=== PATIENT | male | born 1940 | race Caucasian/White ===

== ENCOUNTER 2017-12-29 16:26 | Inpatient (IN) | payer OTHER ==
[~2017-12-29] VITALS: Ht 182.9 cm; Wt 82.1 kg
[~2017-12-29 16:26] MED LIST: ASPI81TA50 PO; DONE10TA61 PO; FINA5TAB4 PO; GLIM2TAB2 PO; MEMA10TA PO; METF10003 PO; PRAV40TA2 PO; RANO500T2 PO; TAMS0.4C2 PO
[2017-12-29] MEDS ORDERED: IV NORMAL SALINE 1,000ML 1,000 ML IV ONE (17:00)
--- NOTE | 2017-12-29 17:05 | RAD ---
Indication: Shortness of breath TECHNIQUE: Portable AP upright chest x-ray COMPARISON: Previous study from 01/17/2016 FINDINGS: Heart is normal in size. Lungs are clear. No pneumothorax or pleural effusion. Visualized bony thorax within normal limits. IMPRESSION: No acute cardiopulmonary process. Electronically signed by: Олег Bryan DO (12/29/2017 5:01 PM) [facility]
--- NOTE | 2017-12-29 17:20 | ED.ADGEN ---
Past History Past Medical History: Anxiety, Diabetes, Other Past Surgical History: Other Alcohol Use: Occasionally Drug Use: None Adult General Chief Complaint Chief Complaint Dizziness HPI HPI Patient is a 77-year-old male with history of dementia presents with increased fatigue staying in bed for the past 2 days when dizzy episode with hypotension and near-syncope just prior to ED arrival. Patient spouse reports patient has had decreased appetite, decreased fluid intake but has been compliant with medications. He has not wanted to get out of bed for the past 2 days. This afternoon while walking, the patient and 12 over was helped to a chair. Home blood pressure is noted to be 80/60. Patient is confused at disoriented at baseline. Denies headache, chest pain palpitations shortness of breath. Fever chills, vomiting, diarrhea. History is limited by memory impairment. History obtained from the patient's spouse who is at bedside. Review of Systems Review of Systems ROS limited due to dementia All other systems were reviewed and found to be within normal limits, except as documented in this note. Current Medications Current Medications Current Medications Medications (Trade) Dose Ordered Sig/Sue Start Time Stop Time Status Last Admin Dose Admin Sodium Chloride 1,000 ml @ 1,000 mls/hr 1X ONCE 12/29/17 17:00 12/29/17 17:59 DC 12/29/17 17:30 1,000 MLS/HR Allergies Allergies Allergies Coded Allergies Type Severity Reaction Last Updated Verified No Known Drug Allergies 03/21/15 No Physical Exam Physical Exam Constitutional: Well developed, well nourished, smiling, pleasant, bilateral external ears normal, oropharynx, dry, nose normal. [] Eyes: PERRLA, EOMI, conjunctiva normal. [] Neck: Normal range of motion. [] Cardiovascular:Heart rate regular rhythm, no murmur [] Lungs & Thorax: Bilateral breath sounds clear to auscultation [] Abdomen: Bowel sounds normal, soft, no tenderness. [] Skin: Warm, dry, no erythema, no rash. [] Back: No midline tenderness. [] Extremities: No tenderness, no edema. [] Neurologic: Alert and oriented,, normal motor function, normal sensory function , no focal deficits noted. [] Psychologic: Affect normal, judgement normal, mood normal. [] Current Patient Data Vital Signs Vital Signs Date Time Temp Pulse Resp B/P (MAP) Pulse Ox O2 Delivery O2 Flow Rate FiO2 12/29/17 16:39 98.2 78 22 95 Room Air Lab Results Laboratory Tests Test 12/29/17 17:30 White Blood Count 5.0 x10^3/uL (4.0-11.0) Red Blood Count 4.86 x10^6/uL (4.30-5.70) Hemoglobin 15.7 g/dL (13.0-17.5) Hematocrit 45.4 % (39.0-53.0) Mean Corpuscular Volume 93 fL (79-100) Mean Corpuscular Hemoglobin 32 pg (25-35) Mean Corpuscular Hemoglobin Concent 35 g/dL (31-37) Red Cell Distribution Width 12.8 % (11.5-14.5) Platelet Count 278 x10^3/uL (140-400) Neutrophils (%) (Auto) 70 % (31-73) Lymphocytes (%) (Auto) 18 % (24-48) L Monocytes (%) (Auto) 8 % (0-9) Eosinophils (%) (Auto) 4 % (0-3) H Basophils (%) (Auto) 1 % (0-3) Neutrophils # (Auto) 3.5 x10^3uL (1.8-7.7) Lymphocytes # (Auto) 0.9 x10^3/uL (1.0-4.8) L Monocytes # (Auto) 0.4 x10^3/uL (0.0-1.1) Eosinophils # (Auto) 0.2 x10^3/uL (0.0-0.7) Basophils # (Auto) 0.0 x10^3/uL (0.0-0.2) EKG EKG [EKG: EKG: Sinus rhythm, rate 59, no acute ST-T wave changes, QTC 396.] Radiology/Procedures Radiology/Procedures [Chest x-ray: No acute cardiopulmonary disease per radiology report.] Course & Med Decision Making Course & Med Decision Making Pertinent Labs and Imaging studies reviewed. (See chart for details) [Asymptomatic on exam, stable vital signs. Lab work and imaging studies reviewed and pending. Care endorsed to [facility] at 1800 disposition pending. ] Final Impression Final Impression [] Dragon Disclaimer Dragon Disclaimer This electronic medical record was generated, in whole or in part, using a voice recognition dictation system. BRIDGETT HINOJOSA DO Dec 29, 2017 17:20
--- NOTE | 2017-12-29 17:46 | EKG ---
[address] [address] Test Date: 2017-12-29 Test Time: 16:47:37 Pat Name: JUNIOR RUSSELL Department: Room: Gender: M Record Librarian: JOANNA : 1940 Requested By: BRIDGETT HINOJOSA Order Number: [id number] Reading MD: Measurements Intervals Robbins Rate: 59 P: 45 OR: 194 QRS: -12 QRSD: 98 T: 73 QT: 396 QTc: 396 Interpretive Statements SINUS RHYTHM LEFTWARD AXIS QRS(T) CONTOUR ABNORMALITY CONSIDER ANTEROLATERAL MYOCARDIAL DAMAGE POSSIBLY ABNORMAL ECG RI6.01 No previous ECG available for comparison
[2017-12-29 17:56] LABS: BASO % 1 % (0-3); EOS # 0.2 x10^3/uL (0.0-0.7); EOS % 4 % (0-3); HEMATOCRIT 45.4 % (39.0-53.0); HEMOGLOBIN 15.7 g/dL (13.0-17.5); LYMPH # 0.9 x10^3/uL (1.0-4.8); LYMPH % 18 % (24-48); MEAN CORPUSCULAR HEMOGLOBIN 32 pg (25-35); MEAN CORPUSCULAR HGB CONC 35 g/dL (31-37); MEAN CORPUSCULAR VOLUME 93 fL (79-100); MONO # 0.4 x10^3/uL (0.0-1.1); MONO % 8 % (0-9); NEUT # 3.5 x10^3uL (1.8-7.7); NEUT % 70 % (31-73); PLATELET COUNT 278 x10^3/uL (140-400); RED BLOOD COUNT 4.86 x10^6/uL (4.30-5.70); RED CELL DISTRIBUTION WIDTH 12.8 % (11.5-14.5)
--- NOTE | 2017-12-29 18:12 | RAD ---
CT HEAD WO CONTRAST History: Dizziness, altered mental status Comparison: 01/05/2016 Technique: Noncontrast CT imaging was performed of the head. Exposure: One or more of the following individualized dose reduction techniques were utilized for this examination: 1. Automated exposure control 2. Adjustment of the mA and/or kV according to patient size 3. Use of iterative reconstruction technique. Findings: No acute extra-axial or parenchymal hemorrhage is identified. There is no significant intra-axial mass effect, midline shift, or extra-axial fluid collection. The la-white differentiation of the major vascular territories is preserved. There is again some mild ill-defined low-density of the supratentorial white matter such as of the parietal lobes. The ventricles, sulci, and cisterns are within normal limits in size and configuration. The mastoid air cells and the visualized paranasal sinuses are mostly aerated, very mild ethmoid air cell mucosal thickening. No acute calvarial abnormality is identified. There is incomplete unification of posterior arch of C1 as seen previously. Impression: 1. No acute intracranial abnormality is identified. Mild ill-defined low-density of the supratentorial parenchyma is nonspecific, may be due to chronic microvascular ischemic disease. Electronically signed by: Mehul Pritchard MD (12/29/2017 6:08 PM) [facility]
[2017-12-29 18:15] LABS: ALBUMIN 3.7 g/dL (3.4-5.0); ALBUMIN/GLOBULIN RATIO 1.1 (1.0-1.7); CALCIUM 8.9 mg/dL (8.5-10.1); CREATININE 1.2 mg/dL (0.7-1.3); GFR 58.6; POTASSIUM 4.4 mmol/L (3.5-5.1); TOTAL BILIRUBIN 0.5 mg/dL (0.2-1.0)
--- NOTE | 2017-12-29 22:00 | NUR ---
Admission Note: This patient is a 77-year-old male with history of dementia presents with increased fatigue staying in bed for the past 2 days when dizzy episodes with hypotension and near-syncope just prior to coming into the hospital today. Hat time of admission to ICU6 pt was O/A x 4 and is pleasant and cooperative with staff and cares. Pt denies SOB or chest pain. Will have a cardiology consult and a repeat trop. Will place in as a fall precaution and continue to monitor.
[2017-12-29 22:08] VITALS: BP 123/65
[2017-12-29 23:15] VITALS: BP 113/55
[2017-12-30] VITALS (7 sets, daily range): BP systolic 96–132; BP diastolic 54–63
[2017-12-30 06:39] LABS: BASO % 0 % (0-3); EOS # 0.3 x10^3/uL (0.0-0.7); EOS % 4 % (0-3); HEMATOCRIT 40.6 % (39.0-53.0); HEMOGLOBIN 14.1 g/dL (13.0-17.5); LYMPH # 1.3 x10^3/uL (1.0-4.8); LYMPH % 19 % (24-48); MEAN CORPUSCULAR HEMOGLOBIN 32 pg (25-35); MEAN CORPUSCULAR HGB CONC 35 g/dL (31-37); MEAN CORPUSCULAR VOLUME 92 fL (79-100); MONO # 0.6 x10^3/uL (0.0-1.1); MONO % 9 % (0-9); NEUT # 4.4 x10^3uL (1.8-7.7); NEUT % 68 % (31-73); PLATELET COUNT 260 x10^3/uL (140-400); RED CELL DISTRIBUTION WIDTH 12.8 % (11.5-14.5); WHITE BLOOD COUNT 6.5 x10^3/uL (4.0-11.0)
[2017-12-30 06:52] LABS: CALCIUM 8.1 mg/dL (8.5-10.1); GFR 72.3; POTASSIUM 3.5 mmol/L (3.5-5.1)
[2017-12-30] MEDS: ASPIRIN 81 MG TAB.CHEW PO SCH (08:15)
[2017-12-30] MEDS ORDERED: CITALOPRAM 20 MG TABLET. PO SCH (10:00)
[2017-12-30] MEDS ORDERED: TAMS0.4C2 PO (10:00)
[2017-12-30] MEDS ORDERED: MULT1TAB52 PO (10:00)
[2017-12-30] MEDS ORDERED: LEXAPRO20 MG PO (10:00)
[2017-12-30] MEDS ORDERED: TAMSULOSIN 0.4 MG CAP.ER.24H. PO SCH (10:00)
--- NOTE | 2017-12-30 10:04 | NUR ---
Patient stood to use urinal and experienced "a moment of weakness and dizziness". Will report to physician.
[2017-12-30] MEDS: MULTIVITAMIN with MINERAL TABLET. PO SCH (10:32)
--- NOTE | 2017-12-30 11:10 | NUR ---
Received home medication list from patients daughter via phone. Addendum: 12/30/17 at 1424 by CARLEY LEUNG RN called Dr. Lucero office and received H&P and official medication list via fax. Medications entered into medical record.
--- NOTE | 2017-12-30 11:13 | PDOC2 ---
CONSULT Date of Admission DATE: 12/30/17 TIME: 11:13 Reason for Consult: syncope Problem List Problems Medical Problems: (1) Dizziness Status: Acute (2) Near syncope Status: Acute History of Present Illness Patient is a 77-year-old male with history of dementia who presented with increased fatigue staying in bed for the past 2 days, dizzy episode with hypotension and near-syncope just prior to ED arrival. Patients spouse reported patient has had decreased appetite, decreased fluid intake but has been compliant with medications. He apparently had not wanted to get out of bed for 2 days. Yesterday afternoon he apparently had a syncopal episode. Home blood pressure was noted to be 80/60. Patient is confused at disoriented at baseline. He is a very poor historian. History if obtained from the hospital chart, nursing staff and his PCP records in [facility]. [facility]. He currently denies any complaints. He is orthostatic this am with standing systolic pressure of 81 mmHg but without complaints of dizziness. He denies chest pain palpitations shortness of breath. Past Medical History diabetes mellitus II, hyperlipidemia, hypogonadism, prostate concer, depression , DJD, melanoma, hypertension, BPH, bradycardia, PHTN, CAD, ED, Dementia Echo 05/23/16 LVEF 60-65% grade 1 diastolic dysfunction aortic root 3.8 cm proximal ascending aorta 3.7cm mild TR, PAS 28 mmHg Holter monitor 2014 Sinus rhythm with average rate of 60 bpm. PACs, PVCs, 12 short PAT runs. MPI 2013 normal perfusion Past Surgical History Melanoma excision, Cyst removal L arm, rotator cuff repair, prostate biopsy, inguinal hernia repair Family History breast cancer, stroke, coronary artery disease, Alzheimer's disease. Social History non smoker, no excessive ETOH, no illicit drugs Current Medications Current Medications Sodium Chloride 1,000 ml @ 1,000 mls/hr 1X ONCE IV Last administered on at 17:30; Start 12/29/17 at 17:00; Stop 12/29/17 at 17:59; Status DC Aspirin (Children'S Aspirin) 81 mg DAILY PO Last administered on 12/30/17at 08: 15; Start 12/30/17 at 09:00 Tamsulosin HCl (Flomax) 0.4 mg DAILY PO Last administered on 12/30/17at 10:33; Start 12/30/17 at 10:00 Citalopram Hydrobromide (CeleXA) 40 mg DAILY PO Last administered on 12/30/17at 10:32; Start 12/30/17 at 10:00 Multivitamins/ Calcium (Thera-M Plus) 1 tab DAILY PO Last administered on at 10:32; Start 12/30/17 at 10:00 Active Scripts Active Reported Lexapro (Escitalopram Oxalate) 20 Mg Tablet 20 Mg PO DAILY Multivitamins (Multivitamin) 1 Each Tablet 1 Each PO DAILY Tamsulosin Hcl 0.4 Mg Cap.er.24h 0.4 Mg PO DAILY Pravastatin Sodium 40 Mg Tablet 1 Tab PO DAILY Metformin Hcl 1,000 Mg Tablet 500 Mg PO BIDWMEALS Tamsulosin Hcl 0.4 Mg Cap.er.24h 0.4 Mg PO Aspir-Low (Aspirin) 81 Mg Tablet.dr 81 Mg PO Allergies: Coded Allergies: No Known Drug Allergies (Unverified , 03/21/15) Review of System limited due to patient mental status. General: Alert, Cooperative, No acute distress HEENT: Atraumatic, Mucous membr. moist/pink Lungs: Clear to auscultation, Normal air movement Heart: Regular rate, Normal S1, Normal S2, Other (no gallops, clicks or rubs) Abdomen: Normal bowel sounds, Soft, No tenderness Extremities: No cyanosis, No edema Neuro: Normal speech Psych/Mental Status: Mood NL VITALS Vital Signs Date Time Temp Pulse Resp B/P (MAP) Pulse Ox O2 Delivery O2 Flow Rate FiO2 12/30/17 06:10 98.7 54 18 112/54 (73) 93 Room Air Labs Laboratory Tests Test 12/29/17 17:30 12/29/17 23:30 12/30/17 05:54 White Blood Count 5.0 x10^3/uL (4.0-11.0) 6.5 x10^3/uL (4.0-11.0) Red Blood Count 4.86 x10^6/uL (4.30-5.70) 4.40 x10^6/uL (4.30-5.70) Hemoglobin 15.7 g/dL (13.0-17.5) 14.1 g/dL (13.0-17.5) Hematocrit 45.4 % (39.0-53.0) 40.6 % (39.0-53.0) Mean Corpuscular Volume 93 fL (79-100) 92 fL (79-100) Mean Corpuscular Hemoglobin 32 pg (25-35) 32 pg (25-35) Mean Corpuscular Hemoglobin Concent 35 g/dL (31-37) 35 g/dL (31-37) Red Cell Distribution Width 12.8 % (11.5-14.5) 12.8 % (11.5-14.5) Platelet Count 278 x10^3/uL (140-400) 260 x10^3/uL (140-400) Neutrophils (%) (Auto) 70 % (31-73) 68 % (31-73) Lymphocytes (%) (Auto) 18 % (24-48) 19 % (24-48) Monocytes (%) (Auto) 8 % (0-9) 9 % (0-9) Eosinophils (%) (Auto) 4 % (0-3) 4 % (0-3) Basophils (%) (Auto) 1 % (0-3) 0 % (0-3) Neutrophils # (Auto) 3.5 x10^3uL (1.8-7.7) 4.4 x10^3uL (1.8-7.7) Lymphocytes # (Auto) 0.9 x10^3/uL (1.0-4.8) 1.3 x10^3/uL (1.0-4.8) Monocytes # (Auto) 0.4 x10^3/uL (0.0-1.1) 0.6 x10^3/uL (0.0-1.1) Eosinophils # (Auto) 0.2 x10^3/uL (0.0-0.7) 0.3 x10^3/uL (0.0-0.7) Basophils # (Auto) 0.0 x10^3/uL (0.0-0.2) 0.0 x10^3/uL (0.0-0.2) Sodium Level 141 mmol/L (136-145) 142 mmol/L (136-145) Potassium Level 4.4 mmol/L (3.5-5.1) 3.5 mmol/L (3.5-5.1) Chloride Level 104 mmol/L (98-107) 107 mmol/L (98-107) Carbon Dioxide Level 28 mmol/L (21-32) 26 mmol/L (21-32) Anion Gap 9 (6-14) 9 (6-14) Blood Urea Nitrogen 15 mg/dL (8-26) 14 mg/dL (8-26) Creatinine 1.2 mg/dL (0.7-1.3) 1.0 mg/dL (0.7-1.3) Estimated GFR (Cockcroft-Gault) 58.6 72.3 BUN/Creatinine Ratio 13 (6-20) Glucose Level 186 mg/dL (70-99) 113 mg/dL (70-99) Calcium Level 8.9 mg/dL (8.5-10.1) 8.1 mg/dL (8.5-10.1) Total Bilirubin 0.5 mg/dL (0.2-1.0) Aspartate Amino Transf (AST/SGOT) 16 U/L (15-37) Alanine Aminotransferase (ALT/SGPT) 20 U/L (16-63) Alkaline Phosphatase 104 U/L (46-116) Troponin I Quantitative < 0.017 ng/mL (0-0.055) < 0.017 ng/mL (0-0.055) OC-Acr-B-Type Natriuretic Peptide 128 pg/mL (0-449) Total Protein 7.0 g/dL (6.4-8.2) Albumin 3.7 g/dL (3.4-5.0) Albumin/Globulin Ratio 1.1 (1.0-1.7) Assessment/Plan 1. syncope - likely secondary to orthostatic hypotension . Add midodrine, check echo, YULIA hose. 2. Bradycardia - SB 50s for low with occasional PVCs. Await echo. Continue to monitor. Avoid AV jalen blockers. Bradycardia is apparently not new for him and has been stable for some time. Consider repeat outpatient monitor. 3. hypertension - controlled off antihypertensives. Continued to be orthostatic. 4. hyperlipidemia - check lipids Follow up with primary tetryl blender operator ([facility]) after discharge. SILVIA URBINA APRN Dec 30, 2017 11:13
[2017-12-30] MEDS ORDERED: IV NORMAL SALINE 1,000ML 1,000 ML IV ONE (12:00)
--- NOTE | 2017-12-30 12:09 | HP ---
ADMIT DATE: 12/30/2017 HISTORY OF PRESENT ILLNESS: The patient is a 77-year-old male patient, who apparently was brought to the Emergency Room with increased fatigue, staying in bed for the last 2 days. With these episodes with hypertension, near syncope just prior to the Emergency Room arrival, his reported that the patient has decreased appetite, decreased fluid intake, has been compliant with his medication. He does not want to get up out of the bed for the last 2 days. In the afternoon while walking the patient help with a chair and home blood pressure measurement was 80/60. He was confused, disoriented at baseline. He was evaluated in the Emergency Room, was admitted with dizziness, near syncope. He has also had bradycardia. PAST MEDICAL HISTORY: Significant for type 2 diabetes, hypertension, hyperlipidemia and depression. PAST SURGICAL HISTORY: Unobtainable. ALLERGIES: He has no known drug allergies. MEDICATIONS: He is currently on Flomax 0.4 mg daily, pravastatin sodium 40 mg at bedtime, aspirin 81 mg once a day, escitalopram oxalate 20 mg daily, metformin 500 mg twice a day with meals and multivitamin 1 tablet once a day. FAMILY HISTORY: Unobtainable. SOCIAL HISTORY: He is , lives with his . He apparently does not smoke, drink alcohol or use any recreational drugs. REVIEW OF SYSTEMS: Also unobtainable as the patient is demented. PHYSICAL EXAMINATION: GENERAL: On arrival to the Emergency Room, he apparently was pale, but not jaundiced, cyanosis, thyromegaly. No jugular venous distension. No lower limb edema. VITAL SIGNS: His heart rate was 78, blood pressure was 119/74, temperature was 98.2, respiratory rate was 22 and oxygen saturation was 95% on room air. HEAD, EYES, EARS, NOSE AND THROAT: Showed normocephalic, atraumatic. NECK: Supple. HEART: Showed normal first and second heart sounds with no gallop, rub or murmur. CHEST: Clear to auscultation. No crepitation or rhonchi. ABDOMEN: Distended, soft, nontender. No guarding or rigidity. No organomegaly. All hernial orifice intact. Bowel sounds normal. NEUROLOGIC: He was awake, alert, but very confused, disoriented in time, place and person; however, all cranial nerves intact. EXTREMITIES: He moves extremities without difficulty. LABORATORY DATA: While in the Emergency Room, his lab work done, which showed a white cell count 5000, hemoglobin 15.7, hematocrit 45, MCV 93, and platelet count of 278,000 with normal manual differential. His chemistry showed a serum sodium 141, potassium 4.4, chloride 104, bicarbonate 28, anion gap of 9, BUN 15, creatinine 1.2, estimated GFR was 68 mL per minute, his glucose 186, calcium was 8.9. Total bilirubin, AST, ALT, alkaline phosphatase were normal. His first set of cardiac enzyme showed the troponin to be less than 0.017. Beta natriuretic peptide was 128. Total protein 7, albumin was 3.7. He has had chest x-ray showed the heart size is normal. Lungs are clear, no pneumothorax, pleural effusion, visualized bony thorax are within normal limits. His CT scan of the head showed that no acute intracranial abnormality identified. Mild ill-defined low density of the supratentorial, parenchyma is nonspecific, may be due to chronic microvascular ischemic disease. ASSESSMENT AND PLAN: The patient was admitted with dizziness, near syncope, fatigue, and type 2 diabetes. We will do the 2 more sets of cardiac enzyme, consult the Cardiology team and decide on further management accordingly. SKY SOTO MD DR: DALE/indio JOB#: [id number] / [id number]
[2017-12-30] MEDS: MIDODRINE 5 MG TABLET PO SCH ×2 (12:10→18:02)
[2017-12-30] MEDS ORDERED: METF10003 PO (13:05)
[2017-12-30] MEDS ORDERED: ESCITALOPRAM OX10 MG PO (13:05)
[2017-12-30] MEDS ORDERED: MEMA1CAP3 PO (13:05)
[2017-12-30] MEDS ORDERED: CHOL10003 PO (13:05)
[2017-12-30] MEDS ORDERED: PRAV80TA2 PO (13:05)
[2017-12-30] MEDS: DONEPEZIL HCL 10 MG TABLET PO SCH (14:09)
[2017-12-30] MEDS: MEMANTINE 10 MG TABLET. PO SCH ×2 (14:09→20:24)
[2017-12-30] MEDS: CHOLECALCIFEROL (VITAMIN D3) 1,000 UNIT TABLET PO SCH (14:09)
[2017-12-30] MEDS ORDERED: SULF15DR5 OP (16:39)
[2017-12-30] MEDS: metFORMIN 500 MG TABLET PO SCH (18:02)
[2017-12-30] MEDS: SULFACETAMIDE 10% OPHTH SOLUTION 15ML BOTTLE. OS SCH (20:11)
[2017-12-30] MEDS: PRAVASTATIN 20 MG TABLET. PO SCH (20:24)
[2017-12-30] MEDS: TAMSULOSIN 0.4 MG CAP.ER.24H. PO SCH (20:24)
--- NOTE | 2017-12-31 00:07 | PN ---
DATE: 12/30/2017 SUBJECTIVE: The patient is resting flat comfortably in bed, no apparent distress. On questioning him, he denied any complaint. The patient was extremely confused, disoriented. Nursing staff did not voice any concern except that he continued to demonstrate marked postural hypotension. PHYSICAL EXAMINATION: VITAL SIGNS: In fact, his blood pressure lying was 113/56 with the heart rate of 62, sitting was 96/54 with the heart rate of 62, and standing was 81/47 with the heart rate that actually rate was 77. Rest of the clinical exam is stable, has not really changed. LABORATORY DATA: Lab work this morning showed a serum sodium 142, potassium 3.5, chloride 107, bicarbonate 26, anion gap of 9, BUN 14, creatinine 1, estimated GFR was 72 mL per minute. His glucose was 113, calcium was 8.1. His white cell count was 6500, hemoglobin 14, hematocrit 40, MCV 92, and platelet count of 260,000 with normal manual differential. ASSESSMENT: 1. Dizziness, syncope with my differential diagnoses include volume depletion, effect of the Flomax as he takes it during daytime, and autonomic neuropathy as he is diabetic. 2. Type 2 diabetes, for which he is on metformin. 3. Hyperlipidemia. 4. Benign prostatic hypertrophy. PLAN: My plan is to start him on IV fluid with a bolus of normal saline at 500 mL over an hour and continue at 100 mL per hour. He was seen by the slope hoist operator and he was started also on midodrine We will follow his labs closely and decide on further management accordingly. SKY SOTO MD DR: DALE/indio JOB#: [id number] / [id number]
[2017-12-31 03:40] VITALS: BP 131/65
[2017-12-31 05:45] VITALS: BP 117/62
[2017-12-31] MEDS: MIDODRINE 5 MG TABLET PO SCH ×3 (06:40→17:48)
[2017-12-31 06:56] LABS: CALCIUM 8.3 mg/dL (8.5-10.1); GFR 72.3; POTASSIUM 3.6 mmol/L (3.5-5.1)
[2017-12-31] MEDS: CHOLECALCIFEROL (VITAMIN D3) 1,000 UNIT TABLET PO SCH (08:27)
[2017-12-31] MEDS: metFORMIN 500 MG TABLET PO SCH ×2 (08:28→17:02)
[2017-12-31] MEDS: DONEPEZIL HCL 10 MG TABLET PO SCH (08:28)
[2017-12-31] MEDS: ASPIRIN 81 MG TAB.CHEW PO SCH (08:28)
[2017-12-31] MEDS: MULTIVITAMIN with MINERAL TABLET. PO SCH (08:28)
[2017-12-31] MEDS: MEMANTINE 10 MG TABLET. PO SCH ×2 (08:28→20:51)
[2017-12-31] MEDS: SULFACETAMIDE 10% OPHTH SOLUTION 15ML BOTTLE. OS SCH ×3 (08:28→20:52)
[2017-12-31] MEDS: CITALOPRAM 20 MG TABLET. PO SCH (08:28)
--- NOTE | 2017-12-31 08:37 | CARD ---
MR#: [id number] Date of Study: 12/30/2017 Ordering Physician: SILVIA URBINA, Referring Physician: SKY SOTO, Tech: LIZZIE Orellana APPROVED REPORT EXAM: Two-dimensional and M-mode echocardiogram with Doppler and color Doppler. Other Information Quality : Average INDICATION Syncope 2D DIMENSIONS Left Atrium(2D)3.7 (1.6-4.0cm)IVSd1.0 (0.7-1.1cm) Aortic Root(2D)2.9 (2.0-3.7cm)LVDd5.4 (3.9-5.9cm) LVOT Diameter2.4 (1.8-2.4cm)PWd0.9 (0.7-1.1cm) LVDs3.6 (2.5-4.0cm)FS (%) 33.2 % SV87.6 mlLVEF(%)61.3 (>50%) Aortic Valve AoV Peak Anthony.144.8cm/Marin Peak GR.8.4mmHg LVOT Peak Anthony.77.5cm/sAVA (VMAX)2.48cm2 Mitral Valve MV E Qfljihew22.3cm/sMV DECEL [id number] MV A Lwcpspfa33.0cm/sE/A Ratio1.1 Tricuspid Valve TR P. [id number]/sRAP [id number] TR Peak Gr.21urPsTAIK21cmIy LEFT VENTRICLE The left ventricle is normal size. There is normal left ventricular wall thickness. The left ventricu lar systolic function is normal. The Ejection Fraction is 60-65%. There is normal LV segmental wall m otion. RIGHT VENTRICLE The right ventricle is normal size. There is normal right ventricular wall thickness. The right ventr icular systolic function is normal. ATRIA The left atrium size is normal. The right atrium size is normal. The interatrial septum is intact wit h no evidence for an atrial septal defect or patent foramen ovale as noted on 2-D or Doppler imaging. AORTIC VALVE The aortic valve is trileaflet. The aortic valve is mildly calcified. Doppler and Color Flow revealed trace aortic regurgitation. There is no significant aortic valvular stenosis. MITRAL VALVE The mitral valve is normal in structure and function. There is no mitral valve stenosis. Doppler and Color-flow revealed trace mitral regurgitation. TRICUSPID VALVE Doppler and Color Flow revealed trace to mild tricuspid regurgitation. There is no tricuspid valve st enosis. PULMONIC VALVE The pulmonic valve is not well visualized. Doppler and Color Flow revealed no pulmonic valvular regur gitation. There is no pulmonic valvular stenosis. GREAT VESSELS The aortic root is normal in size. The IVC is normal in size and collapses >50% with inspiration. PERICARDIAL EFFUSION There is no pleural effusion. There is no evidence of significant pericardial effusion. Critical Notification Critical Value: No <Conclusion> The left ventricular systolic function is normal. The Ejection Fraction is 60-65%. There is normal LV segmental wall motion. Trace mitral regurgitation. Trace to mild tricuspid regurgitation. There is no evidence of significant pericardial effusion. There is no evidence of significant pericardial effusion. Signed by : Chiki Sepulveda, Electronically Approved : 12/31/2017 08:36:20
--- NOTE | 2017-12-31 10:30 | PDOC ---
PROGRESS NOTES Diagnosis Problem Problems Medical Problems: (1) Dizziness Status: Acute (2) Near syncope Status: Acute Assessment Problems Medical Problems: (1) Dizziness Status: Acute (2) Near syncope Status: Acute 1. syncope - likely secondary to orthostatic hypotension . orthostatic pressures improving on midodrine. Repeat orthostatic checks today. 2. Bradycardia - SB 50s for low with occasional PVCs. Heart rates appear stable. Continue to monitor. Consider repeat outpatient monitor. 3. hypertension - controlled off antihypertensives. Normal LVEF and wall motion by echo. 4. hyperlipidemia - lipids pending Follow up with primary powdered metal supervisor after discharge. Subjective no chest pain, dyspnea or recurrent syncope Objective Vital Signs Date Time Temp Pulse Resp B/P (MAP) Pulse Ox O2 Delivery O2 Flow Rate FiO2 12/31/17 06:40 58 117/62 12/31/17 05:45 98.1 18 96 Room Air Intake and Output 12/31/17 07:00 Intake Total 2619 ml Output Total 1150 ml Balance 1469 ml Intake Oral 1620 ml IV Total 999 ml Output Urine Total 1150 ml # Voids 5 Abdomen: Normal bowel sounds, Soft Heart: Regular rate, Normal S1, Normal S2 Extremities: No cyanosis, Normal pulses General: Alert, Oriented X3, Cooperative Lungs: Clear to auscultation Neuro: Normal speech Psych/Mental Status: Mental status NL, Mood NL Review of Relevant I have reviewed the following items jeanna (where applicable) has been applied. Labs Laboratory Tests Test 12/29/17 17:30 12/29/17 23:23 12/29/17 23:30 12/30/17 05:54 White Blood Count 5.0 x10^3/uL (4.0-11.0) 6.5 x10^3/uL (4.0-11.0) Red Blood Count 4.86 x10^6/uL (4.30-5.70) 4.40 x10^6/uL (4.30-5.70) Hemoglobin 15.7 g/dL (13.0-17.5) 14.1 g/dL (13.0-17.5) Hematocrit 45.4 % (39.0-53.0) 40.6 % (39.0-53.0) Mean Corpuscular Volume 93 fL (79-100) 92 fL (79-100) Mean Corpuscular Hemoglobin 32 pg (25-35) 32 pg (25-35) Mean Corpuscular Hemoglobin Concent 35 g/dL (31-37) 35 g/dL (31-37) Red Cell Distribution Width 12.8 % (11.5-14.5) 12.8 % (11.5-14.5) Platelet Count 278 x10^3/uL (140-400) 260 x10^3/uL (140-400) Neutrophils (%) (Auto) 70 % (31-73) 68 % (31-73) Lymphocytes (%) (Auto) 18 % (24-48) 19 % (24-48) Monocytes (%) (Auto) 8 % (0-9) 9 % (0-9) Eosinophils (%) (Auto) 4 % (0-3) 4 % (0-3) Basophils (%) (Auto) 1 % (0-3) 0 % (0-3) Neutrophils # (Auto) 3.5 x10^3uL (1.8-7.7) 4.4 x10^3uL (1.8-7.7) Lymphocytes # (Auto) 0.9 x10^3/uL (1.0-4.8) 1.3 x10^3/uL (1.0-4.8) Monocytes # (Auto) 0.4 x10^3/uL (0.0-1.1) 0.6 x10^3/uL (0.0-1.1) Eosinophils # (Auto) 0.2 x10^3/uL (0.0-0.7) 0.3 x10^3/uL (0.0-0.7) Basophils # (Auto) 0.0 x10^3/uL (0.0-0.2) 0.0 x10^3/uL (0.0-0.2) Sodium Level 141 mmol/L (136-145) 142 mmol/L (136-145) Potassium Level 4.4 mmol/L (3.5-5.1) 3.5 mmol/L (3.5-5.1) Chloride Level 104 mmol/L (98-107) 107 mmol/L (98-107) Carbon Dioxide Level 28 mmol/L (21-32) 26 mmol/L (21-32) Anion Gap 9 (6-14) 9 (6-14) Blood Urea Nitrogen 15 mg/dL (8-26) 14 mg/dL (8-26) Creatinine 1.2 mg/dL (0.7-1.3) 1.0 mg/dL (0.7-1.3) Estimated GFR (Cockcroft-Gault) 58.6 72.3 BUN/Creatinine Ratio 13 (6-20) Glucose Level 186 mg/dL (70-99) 113 mg/dL (70-99) Calcium Level 8.9 mg/dL (8.5-10.1) 8.1 mg/dL (8.5-10.1) Total Bilirubin 0.5 mg/dL (0.2-1.0) Aspartate Amino Transf (AST/SGOT) 16 U/L (15-37) Alanine Aminotransferase (ALT/SGPT) 20 U/L (16-63) Alkaline Phosphatase 104 U/L (46-116) Troponin I Quantitative < 0.017 ng/mL (0-0.055) < 0.017 ng/mL (0-0.055) RN-Enr-X-Type Natriuretic Peptide 128 pg/mL (0-449) Total Protein 7.0 g/dL (6.4-8.2) Albumin 3.7 g/dL (3.4-5.0) Albumin/Globulin Ratio 1.1 (1.0-1.7) Nasal Screen MRSA (PCR) Positive (Negative) Test 12/31/17 05:53 Sodium Level 144 mmol/L (136-145) Potassium Level 3.6 mmol/L (3.5-5.1) Chloride Level 109 mmol/L (98-107) Carbon Dioxide Level 26 mmol/L (21-32) Anion Gap 9 (6-14) Blood Urea Nitrogen 9 mg/dL (8-26) Creatinine 1.0 mg/dL (0.7-1.3) Estimated GFR (Cockcroft-Gault) 72.3 Glucose Level 130 mg/dL (70-99) Calcium Level 8.3 mg/dL (8.5-10.1) Medications Current Medications Sodium Chloride 1,000 ml @ 1,000 mls/hr 1X ONCE IV Last administered on at 17:30; Start 12/29/17 at 17:00; Stop 12/29/17 at 17:59; Status DC Aspirin (Children'S Aspirin) 81 mg DAILY PO Last administered on 12/31/17 08: 28; Start 12/30/17 at 09:00 Tamsulosin HCl (Flomax) 0.4 mg DAILY PO Last administered on 12/30/17at 10:33; Start 12/30/17 at 10:00; Stop 12/30/17 at 12:57; Status DC Citalopram Hydrobromide (CeleXA) 40 mg DAILY PO Last administered on 12/30/17at 10:32; Start 12/30/17 at 10:00; Stop 12/30/17 at 13:07; Status DC Multivitamins/ Calcium (Thera-M Plus) 1 tab DAILY PO Last administered on 08:28; Start 12/30/17 at 10:00 Midodrine (Proamatine) 5 mg [id number] PO Last administered on 12/31/17at 06:40; Start 12/30/17 at 13:00 Sodium Chloride 1,000 ml @ 1,000 mls/hr 1X ONCE IV Last administered on 12:09; Start 12/30/17 at 12:00; Stop 12/30/17 at 12:59; Status DC Tamsulosin HCl (Flomax) 0.4 mg HS PO ; Start 12/31/17 at 21:00 Vitamin D (Vitamin D3) 2,000 unit DAILY PO Last administered on 12/31/17at 08:27 ; Start 12/30/17 at 13:30 Tamsulosin HCl (Flomax) 0.4 mg HS PO Last administered on 12/30/17at 20:24; Start 12/30/17 at 21:00 Citalopram Hydrobromide (CeleXA) 20 mg DAILY PO Last administered on 12/31/17 08:28; Start 12/31/17 at 09:00 Memantine (Namenda) 10 mg BID PO Last administered on 12/31/17at 08:28; Start at 13:30 Metformin HCl (Glucophage) 1,000 mg BIDWMEALS PO Last administered on at 08:28; Start 12/30/17 at 17:00 Pravastatin Sodium (Pravachol) 80 mg QHS PO Last administered on 12/30/17at 20: 24; Start 12/30/17 at 21:00 Donepezil HCl (Aricept) 10 mg DAILY PO Last administered on 12/31/17at 08:28; Start 12/30/17 at 13:30 Sulfacetamide Sodium (Sulf-10) apply 1-2 drops to left eye TID ... TID OS ; Start 12/30/17 at 21:00; Stop 01/01/18 at 21:00 Active Scripts Active Reported Sulfacetamide Sodium 15 Ml Drops 1-2 Drop OP TID Namzaric 28 mg-10 mg Capsule (Memantine HCl/Donepezil HCl) 1 Each Cap.spr.24 1 Each PO DAILY Escitalopram Oxalate 10 Mg Tablet 10 Mg PO DAILY Pravastatin Sodium 80 Mg Tablet 80 Mg PO HS Vitamin D3 (Cholecalciferol (Vitamin D3)) 1,000 Unit Tablet 2,000 Unit PO DAILY Metformin Hcl 1,000 Mg Tablet 1,000 Mg PO BIDWMEALS Multivitamins (Multivitamin) 1 Each Tablet 1 Each PO DAILY Tamsulosin Hcl 0.4 Mg Cap.er.24h 0.4 Mg PO DAILY Tamsulosin Hcl 0.4 Mg Cap.er.24h 0.4 Mg PO Aspir-Low (Aspirin) 81 Mg Tablet.dr 81 Mg PO Vitals/I & O Vital Sign - Last 24 Hours 12/30/17 12/30/17 12/30/17 12/30/17 11:22 11:43 12:10 15:43 Pulse 61 62 62 66 Resp 18 B/P (MAP) 113/56 (75) 96/54 (68) 96/54 113/63 (80) Pulse Ox 93 95 O2 Delivery Room Air Room Air Room Air 12/30/17 12/30/17 12/30/17 12/30/17 18:02 19:15 19:15 22:20 Temp 98.0 98.1 Pulse 66 58 70 Resp 20 18 B/P (MAP) 113/63 129/60 (83) 132/59 (83) Pulse Ox 97 95 O2 Delivery Room Air Room Air Room Air 12/31/17 12/31/17 12/31/17 03:40 05:45 06:40 Temp 98.3 98.1 Pulse 69 58 58 Resp 18 18 B/P (MAP) 131/65 (87) 117/62 (80) 117/62 Pulse Ox 95 96 O2 Delivery Room Air Room Air Intake and Output 12/30/17 12/30/17 12/31/17 15:00 23:00 07:00 Intake Total 480 ml 1839 ml 300 ml Output Total 1150 ml Balance 480 ml 689 ml 300 ml SILVIA URBINA APRN Dec 31, 2017 10:30
[2017-12-31 11:11] VITALS: BP 118/63
--- NOTE | 2017-12-31 12:52 | NUR ---
IP: patient has +MRSA nasal screening, requires contact precautions until 2 negative results 7 days apart.
[2017-12-31] MEDS: IV NORMAL SALINE 1,000ML 1,000 ML IV SCH (15:15)
[2017-12-31 15:57] VITALS: BP 125/65
[2017-12-31 20:26] VITALS: BP 128/66
[2017-12-31] MEDS: TAMSULOSIN 0.4 MG CAP.ER.24H. PO SCH (20:51)
[2017-12-31] MEDS: PRAVASTATIN 20 MG TABLET. PO SCH (20:52)
[2017-12-31] MEDS ORDERED: TAMSULOSIN 0.4 MG CAP.ER.24H. PO SCH (21:00)
[2017-12-31 23:11] VITALS: BP 134/79
--- NOTE | 2017-12-31 23:11 | PN ---
DATE: 12/31/2017 SUBJECTIVE: The patient is sitting in his recliner, in no apparent distress. He is definitely more awake, alert, although continued to be confused. He continued to be markedly orthostatic with a systolic blood pressure standing, dropped down to 85 mmHg from 125 lying. He is obviously confused and does not really give any useful information. PHYSICAL EXAMINATION: GENERAL: When I examined him, he looked pale, no jaundice or cyanosis. No lymphadenopathy, no thyromegaly. No jugular venous distention. No limb edema. VITAL SIGNS: His heart rate was 56, blood pressure was 118/63, temperature was 98.3, respiratory rate was 20, and oxygen saturation was 94%. ____. HEAD, EYES, EARS, NOSE AND THROAT: Showed normocephalic, atraumatic. NECK: Supple. HEART: Showed normal first and second sounds. No gallop, rub or murmur. CHEST: Clear to auscultation. No crepitation or rhonchi. ABDOMEN: Distended, soft, nontender. No guarding or rigidity. No organomegaly. Hernial orifices intact. Bowel sounds normal. NEUROLOGIC: He was awake, alert, but confused. Clinically all his cranial nerves are intact. He moves extremities without difficulty. He ambulates without assistance or assistive devices; however, had marked orthostatic hypotension. His intake over the last 24 hours was 2600, output was 1150. LABORATORY DATA: His lab work this morning showed a white cell count of 6500, hemoglobin 14, hematocrit 40, MCV 92, and platelet count 160. His chemistry showed a serum sodium 144, potassium 3.6, chloride 109, bicarbonate 26, anion gap of 9, BUN 9, creatinine 1, estimated GFR was 72 mL per minute, his glucose was 130, calcium was 8.3. ASSESSMENT: 1. Syncope likely secondary to orthostatic hypotension. He continued to have marked ____ drop from 125 to 85, bradycardia, stable. 2. Hypertension. He is off antihypertensive medication. His blood pressure is well controlled. He has normal left ventricular ejection fraction and wall motion by echocardiogram. 3. Hyperlipidemia, also well controlled. PLAN: My plan is to continue with IV fluid. I will increase his midodrine to 10 mg 3 times a day. SKY SOTO MD DR: DALE/indio JOB#: [id number] / [id number]
[2018-01-01] MEDS: MIDODRINE 5 MG TABLET PO SCH ×2 (05:14→14:03)
[2018-01-01] MEDS: IV NORMAL SALINE 1,000ML 1,000 ML IV SCH ×2 (05:14→13:19)
[2018-01-01 05:37] VITALS: BP 137/69
[2018-01-01 07:02] LABS: CALCIUM 8.2 mg/dL (8.5-10.1); CREATININE 0.9 mg/dL (0.7-1.3); GFR 81.6; POTASSIUM 3.8 mmol/L (3.5-5.1)
[2018-01-01] MEDS: metFORMIN 500 MG TABLET PO SCH (08:36)
[2018-01-01] MEDS: CITALOPRAM 20 MG TABLET. PO SCH (08:36)
[2018-01-01] MEDS: MULTIVITAMIN with MINERAL TABLET. PO SCH (08:36)
[2018-01-01] MEDS: ASPIRIN 81 MG TAB.CHEW PO SCH (08:36)
[2018-01-01] MEDS: DONEPEZIL HCL 10 MG TABLET PO SCH (08:36)
[2018-01-01] MEDS: CHOLECALCIFEROL (VITAMIN D3) 1,000 UNIT TABLET PO SCH (08:36)
[2018-01-01] MEDS: MEMANTINE 10 MG TABLET. PO SCH (08:36)
[2018-01-01] MEDS: SULFACETAMIDE 10% OPHTH SOLUTION 15ML BOTTLE. OS SCH ×2 (08:37→14:03)
--- NOTE | 2018-01-01 10:29 | PDOC ---
PROGRESS NOTES Diagnosis Problem Problems Medical Problems: (1) Dizziness Status: Acute (2) Near syncope Status: Acute Assessment Problems Medical Problems: (1) Dizziness Status: Acute (2) Near syncope Status: Acute 1. syncope - likely secondary to orthostatic hypotension . Orthostatic pressures improving on midodrine. Now asymptomatic. 2. Bradycardia - SB 50s for low with occasional PVCs. Heart rates stable. Could consider repeat MCT as outpatient. 3. hypertension - controlled off antihypertensives. Normal LVEF and wall motion by echo. 4. hyperlipidemia - lipids controlled Follow up with primary paper stacker (RON) in 2-4 weeks outpatient. Subjective denies any lightheadedness or weakness. no chest pain or palpitations. no dyspnea. Objective Vital Signs Date Time Temp Pulse Resp B/P (MAP) Pulse Ox O2 Delivery O2 Flow Rate FiO2 01/01/18 05:37 98.1 60 20 137/69 (91) 95 Room Air Intake and Output 01/01/18 07:00 Intake Total 2473 ml Balance 2473 ml Intake Oral 1080 ml IV Total 1393 ml # Voids 4 Abdomen: Normal bowel sounds, Soft, No tenderness Heart: Regular rate, Normal S1, Normal S2 Extremities: No cyanosis, No edema, Normal pulses General: Alert, Cooperative, No acute distress HEENT: Atraumatic, EOMI Lungs: Clear to auscultation, Normal air movement Neuro: Normal speech, Strength at 5/5 X4 ext Psych/Mental Status: Mental status NL, Mood NL Review of Relevant I have reviewed the following items jeanna (where applicable) has been applied. Labs Laboratory Tests Test 12/31/17 05:53 01/01/18 06:33 Sodium Level 144 mmol/L (136-145) 143 mmol/L (136-145) Potassium Level 3.6 mmol/L (3.5-5.1) 3.8 mmol/L (3.5-5.1) Chloride Level 109 mmol/L (98-107) 110 mmol/L (98-107) Carbon Dioxide Level 26 mmol/L (21-32) 27 mmol/L (21-32) Anion Gap 9 (6-14) 6 (6-14) Blood Urea Nitrogen 9 mg/dL (8-26) 9 mg/dL (8-26) Creatinine 1.0 mg/dL (0.7-1.3) 0.9 mg/dL (0.7-1.3) Estimated GFR (Cockcroft-Gault) 72.3 81.6 Glucose Level 130 mg/dL (70-99) 138 mg/dL (70-99) Calcium Level 8.3 mg/dL (8.5-10.1) 8.2 mg/dL (8.5-10.1) Triglycerides Level 113 mg/dL (0-150) Cholesterol Level 125 mg/dL (0-200) LDL Cholesterol, Calculated 62 mg/dL (0-100) VLDL Cholesterol, Calculated 22 mg/dL (0-40) Non-HDL Cholesterol Calculated 84 mg/dL (0-129) HDL Cholesterol 41 mg/dL (40-60) Cholesterol/HDL Ratio 3.0 Medications Current Medications Sodium Chloride 1,000 ml @ 1,000 mls/hr 1X ONCE IV Last administered on at 17:30; Start 12/29/17 at 17:00; Stop 12/29/17 at 17:59; Status DC Aspirin (Children'S Aspirin) 81 mg DAILY PO Last administered on 01/01/18at 08: 36; Start 12/30/17 at 09:00 Tamsulosin HCl (Flomax) 0.4 mg DAILY PO Last administered on 12/30/17at 10:33; Start 12/30/17 at 10:00; Stop 12/30/17 at 12:57; Status DC Citalopram Hydrobromide (CeleXA) 40 mg DAILY PO Last administered on 12/30/17at 10:32; Start 12/30/17 at 10:00; Stop 12/30/17 at 13:07; Status DC Multivitamins/ Calcium (Thera-M Plus) 1 tab DAILY PO Last administered on at 08:36; Start 12/30/17 at 10:00 Midodrine (Proamatine) 5 mg [id number] PO Last administered on 12/31/17at 12:58; Start 12/30/17 at 13:00; Stop 12/31/17 at 15:17; Status DC Sodium Chloride 1,000 ml @ 1,000 mls/hr 1X ONCE IV Last administered on at 12:09; Start 12/30/17 at 12:00; Stop 12/30/17 at 12:59; Status DC Tamsulosin HCl (Flomax) 0.4 mg HS PO ; Start 12/31/17 at 21:00; Status Cancel Vitamin D (Vitamin D3) 2,000 unit DAILY PO Last administered on 01/01/18 08:36 ; Start 12/30/17 at 13:30 Tamsulosin HCl (Flomax) 0.4 mg HS PO Last administered on 12/31/17at 20:51; Start 12/30/17 at 21:00 Citalopram Hydrobromide (CeleXA) 20 mg DAILY PO Last administered on 01/01/18 08:36; Start 12/31/17 at 09:00 Memantine (Namenda) 10 mg BID PO Last administered on 01/01/18 08:36; Start at 13:30 Metformin HCl (Glucophage) 1,000 mg BIDWMEALS PO Last administered on 08:36; Start 12/30/17 at 17:00 Pravastatin Sodium (Pravachol) 80 mg QHS PO Last administered on 12/31/17at 20: 52; Start 12/30/17 at 21:00 Donepezil HCl (Aricept) 10 mg DAILY PO Last administered on 01/01/18 08:36; Start 12/30/17 at 13:30 Sulfacetamide Sodium (Sulf-10) apply 1-2 drops to left eye TID ... TID OS Last administered on 01/01/18at 08:37; Start 12/30/17 at 21:00; Stop 01/01/18 at 21:00 Midodrine (Proamatine) 10 mg [id number] PO Last administered on 01/01/18 05:14; Start 12/31/17 at 18:00 Sodium Chloride 1,000 ml @ 100 mls/hr Q10H IV Last administered on 01/01/18at 05:14; Start 12/31/17 at 15:15 Active Scripts Active Reported Sulfacetamide Sodium 15 Ml Drops 1-2 Drop OP TID Namzaric 28 mg-10 mg Capsule (Memantine HCl/Donepezil HCl) 1 Each Cap.spr.24 1 Each PO DAILY Escitalopram Oxalate 10 Mg Tablet 10 Mg PO DAILY Pravastatin Sodium 80 Mg Tablet 80 Mg PO HS Vitamin D3 (Cholecalciferol (Vitamin D3)) 1,000 Unit Tablet 2,000 Unit PO DAILY Metformin Hcl 1,000 Mg Tablet 1,000 Mg PO BIDWMEALS Multivitamins (Multivitamin) 1 Each Tablet 1 Each PO DAILY Tamsulosin Hcl 0.4 Mg Cap.er.24h 0.4 Mg PO DAILY Tamsulosin Hcl 0.4 Mg Cap.er.24h 0.4 Mg PO Aspir-Low (Aspirin) 81 Mg Tablet.dr 81 Mg PO Vitals/I & O Vital Sign - Last 24 Hours 12/31/17 12/31/17 12/31/17 12/31/17 11:11 12:58 15:57 17:48 Temp 98.3 98.0 Pulse 56 56 56 56 Resp 20 20 B/P (MAP) 118/63 (81) 118/63 125/65 (85) 125/65 Pulse Ox 94 94 O2 Delivery Room Air Room Air 12/31/17 12/31/17 12/31/17 01/01/18 19:25 20:26 23:11 05:14 Temp 98.3 98.4 Pulse 63 64 64 Resp 18 18 B/P (MAP) 128/66 (86) 134/79 (97) 134/79 Pulse Ox 96 95 O2 Delivery Room Air Room Air Room Air 01/01/18 05:37 Temp 98.1 Pulse 60 Resp 20 B/P (MAP) 137/69 (91) Pulse Ox 95 O2 Delivery Room Air Intake and Output 12/31/17 12/31/17 01/01/18 15:00 23:00 07:00 Intake Total 780 ml 1693 ml Balance 780 ml 1693 ml SILVIA URBINA APRN Jan 01, 2018 10:29
[2018-01-01 11:31] VITALS: BP 120/72
[2018-01-01 11:32] VITALS: BP_SYST 129; BP_SYST 90; BP_DIAS 51; BP_DIAS 73
[2018-01-01] MEDS ORDERED: MIDO10TA PO (12:55)
[2018-01-01 14:03] VITALS: BP 129/60
--- NOTE | 2018-01-01 14:14 | NUR ---
Discharge Note: JUNIOR RUSSELL Discharge instructions and discharge home medications reviewed with Patient and Family Member and a copy given. All questions have been answered and understanding verbalized. The following instructions and handouts were given: education regarding midodrine and weakness; discharge instructions Discontinued lines and drains: Peripheral IV intact. Patient discharged to Home or Self Care withFamily Membervia Ambulated
--- NOTE | 2018-01-01 21:23 | DS ---
DATE OF DISCHARGE: 01/01/2018 HISTORY OF PRESENT ILLNESS: The patient is a 77-year-old male patient who was brought to the Emergency Room with increased fatigue, staying in bed for the last 2 days, had episodes of hypotension, near syncope. His said that he has decreased appetite, decreased fluid intake, has been compliant to his medication. He does not want to get up out of bed. In the afternoon while walking the patient to help him into the chair, home blood pressure measurement was 80/60. He was confused, disoriented baseline. He was evaluated in the Emergency Room, was admitted for dizziness and near syncope. He also had bradycardia. He was evaluated by the Cardiology team and we started him on IV fluid. His echocardiogram was normal. His troponins were normal. He does have bradycardia and occasional PVCs and although he continued to have slight postural drop, he is asymptomatic and has been up and about and a decision was made to discharge him home and to follow with his liquefied natural gas operator at [facility]. PHYSICAL EXAMINATION: GENERAL: When I saw him today, he looked well and was clearly in no apparent respiratory distress, pale, but no jaundice, cyanosis, or thyromegaly. No jugular venous distention. No limb edema. VITAL SIGNS: His heart rate was 57, blood pressure was 129/73 sitting and 90/51 standing; however, the patient has no symptoms, have been up and about; respiratory rate 20 and temperature was 98.1 and oxygen saturation was 96% on room air. HEAD, EYES, EARS, NOSE, AND THROAT: Normocephalic, atraumatic. NECK: Supple. HEART: Showed normal first and second heart sounds with no gallop, rub, or murmur. CHEST: Clear to auscultation. No crepitation or rhonchi. ABDOMEN: Distended, soft, nontender. NEUROLOGIC: He is demented, but without any obvious lateralizing sign. All his cranial nerves are intact. He moves extremities without difficulty. He ambulates without assistance. He has 2 sets of cardiac enzymes that ruled out myocardial infarction. LABORATORY DATA: His serum triglyceride was 113. Cholesterol 125, LDL cholesterol 62, VLDL was 22, and HDL cholesterol was 41 and ratio was 3. His white cell count was 6500, hemoglobin 14, hematocrit 41, MCV 92, and platelet count 260,000. DISCHARGE MEDICATIONS: He will be discharged home to continue on midodrine 10 mg 3 times a day, aspirin 81 mg once a day, cholecalciferol, vitamin D 2000 international units once a day, escitalopram oxalate 10 mg daily, Namzaric 1 capsule daily, metformin 1000 mg twice a day, multivitamin 1 tablet once a day, pravastatin sodium 80 mg at bedtime, sulfacetamide one to two drops 3 times a day for conjunctivitis and tamsulosin 0.4 mg capsule should be given at bedtime. FINAL DISCHARGE DIAGNOSES: Syncope, likely secondary to orthostatic hypotension. The patient continued to have orthostatic hypotension; however, he has been up and about, asymptomatic; bradycardia, again asymptomatic; hypertension, he is off antihypertensive medication. His blood pressure is well controlled. He has normal left ventricular systolic function, normal ejection fraction. Hyperlipidemia, well controlled. Benign prostatic hypertrophy, on Flomax. Dementia, on Namzaric. SKY SOTO MD DR: DALE/indio JOB#: [id number] / [id number]
== END 2018-01-01 14:15 | disposition home or self-care (01) | DRG 312 ==
LOC: ER 16:26 → ICU 20:00 → 1 SOUTH 12-31 10:01
PROVIDERS: ADMIT Internal Medicine; ATTEND Internal Medicine
DX: I95.1 Orthostatic hypotension (principal); I49.3 Ventricular premature depolarization; R00.1 Bradycardia, unspecified; F32.9 Major depressive disorder, single episode, unspecified; F41.9 Anxiety disorder, unspecified; M19.90 Unspecified osteoarthritis, unspecified site; E11.9 Type 2 diabetes mellitus without complications; E78.5 Hyperlipidemia, unspecified; F03.90 Unspecified dementia, unspecified severity, without behavioral disturbance, psychotic disturbance, mood disturbance, and anxiety; I10 Essential (primary) hypertension; I25.10 Atherosclerotic heart disease of native coronary artery without angina pectoris; N40.0 Benign prostatic hyperplasia without lower urinary tract symptoms; Z80.3 Family history of malignant neoplasm of breast; Z82.0 Family history of epilepsy and other diseases of the nervous system; Z82.3 Family history of stroke; Z82.49 Family history of ischemic heart disease and other diseases of the circulatory system; Z85.820 Personal history of malignant melanoma of skin; Z79.899 Other long term (current) drug therapy
CPT/HCPCS: 36415; 70450; 71045; 80048; 80053; 80061; 83880; 84484; 85025; 87641; 93005; 93306; 96360; 96361; G0238; 97110; 99285-25; J7030

== ENCOUNTER 2018-04-28 11:21 | Emergency (ER) | payer OTHER ==
[~2018-04-28] VITALS: Ht 182.9 cm; Wt 82.1 kg
[~2018-04-28 11:21] MED LIST changes: +CHOL10003 PO; +ESCITALOPRAM OX10 MG PO; +LEXAPRO20 MG PO; +MEMA1CAP3 PO; -METF10003 PO; +METF10007 PO; +MIDO10TA PO; +MULT1TAB52 PO; +PRAV80TA2 PO; +SULF15DR5 OP
--- NOTE | 2018-04-28 12:15 | RAD ---
EXAM: CHEST 1 VIEW History: History of fall COMPARISON: 12/29/2017 TECHNIQUE: Single portable radiograph of the chest FINDINGS: The cardiac silhouette is unremarkable. The lungs are clear bilaterally. The costophrenic sulci are clear and well demarcated. IMPRESSION: No radiographic evidence of an acute cardiopulmonary process. Electronically signed by: Castro Shaffer MD (04/28/2018 12:12 PM) [id number]
[2018-04-28 12:27] LABS: BASO % 1 % (0-3); EOS # 0.1 x10^3/uL (0.0-0.7); EOS % 2 % (0-3); HEMATOCRIT 43.7 % (39.0-53.0); LYMPH # 1.1 x10^3/uL (1.0-4.8); LYMPH % 19 % (24-48); MEAN CORPUSCULAR HEMOGLOBIN 33 pg (25-35); MEAN CORPUSCULAR HGB CONC 34 g/dL (31-37); MEAN CORPUSCULAR VOLUME 95 fL (79-100); MONO # 0.4 x10^3/uL (0.0-1.1); MONO % 6 % (0-9); NEUT # 4.2 x10^3uL (1.8-7.7); NEUT % 72 % (31-73); PLATELET COUNT 284 x10^3/uL (140-400); RED BLOOD COUNT 4.61 x10^6/uL (4.30-5.70); RED CELL DISTRIBUTION WIDTH 12.6 % (11.5-14.5); WHITE BLOOD COUNT 5.8 x10^3/uL (4.0-11.0)
--- NOTE | 2018-04-28 12:31 | PHYS DOC ---
Past History Past Medical History: Anxiety, Dementia, Diabetes, Other Past Surgical History: Other Smoking: Non-smoker Alcohol Use: Occasionally Drug Use: None Adult General Chief Complaint Chief Complaint: HIP PAIN HPI HPI Patient is a 78 year old male who brought in by EMS because of a fall and injury to right hip. Patient has dementia and unable to give history and according to his and stepdaughter she got up from his chair and lost his balance and had a fall and landed on his right hip and complaining of pain in his hip and unable to stand up or bearing weight. Patient did not have loss of consciousness or other injuries. Patient rated his pain 2/10 and did not have pain medication by EMS. Review of Systems Review of Systems Constitutional: Denies fever or chills [] Eyes: Denies change in visual acuity, redness, or eye pain [] HENT: Denies nasal congestion or sore throat [] Respiratory: Denies cough or shortness of breath [] Cardiovascular: No additional information not addressed in HPI [] GI: Denies abdominal pain, nausea, vomiting, bloody stools or diarrhea [] : Denies dysuria or hematuria [] Musculoskeletal: Denies back pain, reports joint pain [] Integument: Denies rash or skin lesions [] Neurologic: Denies headache, focal weakness or sensory changes [] Endocrine: Denies polyuria or polydipsia [] All other systems were reviewed and found to be within normal limits, except as documented in this note. Current Medications Current Medications Current Medications Medications (Trade) Dose Ordered Sig/[facility] Start Time Stop Time Status Last Admin Dose Admin Fentanyl Citrate (Fentanyl 2ml Vial) 50 mcg 1X ONCE 04/28/18 12:30 04/28/18 12:31 Allergies Allergies Allergies Coded Allergies Type Severity Reaction Last Updated Verified I S O L A T I O N *CONTACT* Allergy Unknown 12/31/17 Yes NKMA Allergy Unknown 12/31/17 Yes Physical Exam Physical Exam Constitutional: Well nourished, mild distress, non-toxic appearance. [] HENT: Normocephalic, atraumatic, oropharynx moist, no oral exudates, nose normal. [] Eyes: PERRLA, EOMI, conjunctiva normal, no discharge. [] Neck: Normal range of motion, no tenderness, supple, no stridor. [] Cardiovascular:Heart rate regular rhythm, no murmur [] Lungs & Thorax: Bilateral breath sounds clear to auscultation [] Abdomen: Bowel sounds normal, soft, no tenderness, no masses, no pulsatile masses. [] Skin: Warm, dry, no erythema, no rash. [] Back: No tenderness, no CVA tenderness. [] Extremities: Right hip with limited range of motion with pain and tenderness in examination, no erythema or focal neuro deficit Neurologic: Alert and oriented X 1, normal motor function, normal sensory function, no focal deficits noted. [] Psychologic: Affect normal, dementia Current Patient Data Vital Signs Vital Signs Date Time Temp Pulse Resp B/P (MAP) Pulse Ox O2 Delivery O2 Flow Rate FiO2 04/28/18 12:04 98.2 58 18 96 Room Air EKG EKG [] Radiology/Procedures Radiology/Procedures [address] [address] IMAGING REPORT Signed PATIENT: JUNIOR RUSSELL ACCOUNT: [id number] : 1940 LOCATION: ER AGE: 78 SEX: M EXAM STATUS: REG ER ORD. PHYSICIAN: BALTA MENDOZA MD REASON: fall PROCEDURE: CHEST AP ONLY EXAM: CHEST 1 VIEW History: History of fall COMPARISON: 12/29/2017 TECHNIQUE: Single portable radiograph of the chest FINDINGS: The cardiac silhouette is unremarkable. The lungs are clear bilaterally. The costophrenic sulci are clear and well demarcated. IMPRESSION: No radiographic evidence of an acute cardiopulmonary process. Electronically signed by: Castro Shaffer MD (04/28/2018 12:12 PM) [place] [id number] DICTATED AND SIGNED BY: CASTRO SHAFFER MD DATE: 04/28/18 1210 CC: BALTA MENDOZA MD; AUSTIN DAVIS PA ~ [address] [address] IMAGING REPORT Signed PATIENT: JUNIOR RUSSELL ACCOUNT: [id number] : 1940 LOCATION: ER AGE: 78 SEX: M EXAM STATUS: REG ER ORD. PHYSICIAN: BALTA MENDOZA MD REASON: fall PROCEDURE: CT HEAD AND CERVICAL SPINE WO CT HEAD AND CERVICAL SPINE WO Indication: FALL Exposure: One or more of the following individualized dose reduction techniques were utilized for this examination: 1. Automated exposure control 2. Adjustment of the mA and/or kV according to patient size 3. Use of iterative reconstruction technique. Comparison: CT head December 29, 2017 Contrast: None HEAD: Posterior fossa is unremarkable. No evidence of acute intracranial hemorrhage or abnormal extra-axial fluid collection. No evidence of mass effect or midline shift. Low-density in the white matter bilaterally, a nonspecific finding, but which is commonly due to chronic small vessel ischemic disease in a patient of this age. Prominence of ventricles and sulci, compatible with involutional change or atrophy. Visualized orbits are unremarkable. Minimal left maxillary sinus mucosal thickening and ethmoid sinus mucosal thickening. No evidence of depressed skull fracture, although a point of impact is not known. Impression: Chronic findings as detailed above. No evidence of acute intracranial hemorrhage or mass effect. CERVICAL SPINE: C1 ring: Defect at the posterior ring likely developmental. Cervico-occipital junction: Intact C1-C2 relationship: Mild rotation of C1 on C2, may be positional or due to muscle spasm. Fracture: No acute fracture identified. Spondylosis: Severe degenerative spondylosis. Facet joint hypertrophy and posterior osteophytes. Bilateral neural foraminal stenosis and [id number] spinal canal narrowing at multiple levels. Alignment: No significant vertebral body subluxation. Facets: Degenerative changes. No evidence of perched or locked facet. Prevertebral soft tissues: No significant swelling or hematoma Lung apices: Subtle nodularity at the right upper lobe medially. This could be chronic or could represent inflammatory process but is nonspecific. Thyroid: Bilateral hypodense nodules. Largest on the left measures 2.3 cm and is partially calcified. Impression: 1. Severe degenerative spondylosis. 2. No evidence of acute fracture or traumatic subluxation. 3. Subtle nodularity in the right upper lobe, particularly near the posteromedial pleura. Nonspecific, could be chronic or inflammatory but other etiologies not excludable. Consider further evaluation with nonemergent chest radiographs or CT chest, as indicated. 4. Left thyroid mass measures 2.3 cm and is partially calcified. Recommend clinical and sonographic workup, including outpatient thyroid ultrasound. Electronically signed by: Lucas Ortega MD (04/28/2018 1:59 PM) [id number] DICTATED AND SIGNED BY: LUCAS ORTEGA MD DATE: 04/28/18 1336 CC: BALTA MENDOZA MD; AUSTIN DAVIS ~ [address] [address] IMAGING REPORT Signed PATIENT: JUNIOR RUSSELL ACCOUNT: [id number] : 1940 LOCATION: ER AGE: 78 SEX: M EXAM STATUS: REG ER ORD. PHYSICIAN: BALTA MENDOZA MD REASON: pain, injury? PROCEDURE: HIP RIGHT 2V WITH PELVIS HIP RIGHT 2V WITH PELVIS Clinical Indication: FALL, HIP PAIN Comparison: None. Findings: No acute pelvic fracture is seen. On single view the left hip joint is intact. The sacral iliac joints are symmetric. There is acute traumatic right subcapital femoral neck fracture. There is degenerative arthropathy of the bilateral hips. Phlebolith in the left pelvis. IMPRESSION: Acute traumatic right subcapital femoral neck fracture. Electronically signed by: Donato Figueroa MD (04/28/2018 12:27 PM) [id number] DICTATED AND SIGNED BY: DONATO FIGUEROA MD DATE: 04/28/18 1226 CC: BALTA MENDOZA MD; AUSTIN DAVIS ~ Course & Med Decision Making Course & Med Decision Making Pertinent Labs and Imaging studies reviewed. (See chart for details) Evaluation of patient in ER showed 78-year-old male patient with a witnessed fall at home and injury to right hip. Patient had femoral neck fracture of right hip without other injuries. And plan to transfer patient to [place] and on-call hospitalist Dr. Salinas accepted transfer at 1235 to [facility]. On-call orthopedic physician informed at 1220 and agreed with plan of care. Dragon Disclaimer Dragon Disclaimer This electronic medical record was generated, in whole or in part, using a voice recognition dictation system. Departure Departure: Impression: Primary Impression: Femoral neck fracture Additional Impressions: Fall at home Dementia Diabetes mellitus Disposition: XFER SHT-TRM HOSP ([facility] at 1235) Condition: IMPROVED Referrals: AUSTIN DAVIS (PCP) Problem Qualifiers BALTA MENDOZA MD Apr 28, 2018 12:31
[2018-04-28 12:37] LABS: ALBUMIN 3.7 g/dL (3.4-5.0); ALBUMIN/GLOBULIN RATIO 1.2 (1.0-1.7); CALCIUM 9.4 mg/dL (8.5-10.1); CREATININE 1.2 mg/dL (0.7-1.3); GFR 58.4; POTASSIUM 4.2 mmol/L (3.5-5.1); TOTAL BILIRUBIN 0.5 mg/dL (0.2-1.0); TOTAL PROTEIN 6.7 g/dL (6.4-8.2)
[2018-04-28 13:06] LABS: BACTERIA,URINE 0 /HPF (0-FEW); BILIRUBIN,URINE NEG (NEG); CLARITY,URINE HAZY; COLOR,URINE AMBER; GLUCOSE,URINE NEG (NEG); NITRITE,URINE NEG (NEG); SQUAMOUS EPITHELIAL CELL,UR OCC /LPF; UROBILINOGEN,URINE 1 mg/dL (0.2 mg/dL); WBC,URINE RARE /HPF (0-4)
[2018-04-28 13:29] VITALS: BP 134/55
--- NOTE | 2018-04-28 14:02 | RAD ---
CT HEAD AND CERVICAL SPINE WO Indication: FALL Exposure: One or more of the following individualized dose reduction techniques were utilized for this examination: 1. Automated exposure control 2. Adjustment of the mA and/or kV according to patient size 3. Use of iterative reconstruction technique. Comparison: CT head December 29, 2017 Contrast: None HEAD: Posterior fossa is unremarkable. No evidence of acute intracranial hemorrhage or abnormal extra-axial fluid collection. No evidence of mass effect or midline shift. Low-density in the white matter bilaterally, a nonspecific finding, but which is commonly due to chronic small vessel ischemic disease in a patient of this age. Prominence of ventricles and sulci, compatible with involutional change or atrophy. Visualized orbits are unremarkable. Minimal left maxillary sinus mucosal thickening and ethmoid sinus mucosal thickening. No evidence of depressed skull fracture, although a point of impact is not known. Impression: Chronic findings as detailed above. No evidence of acute intracranial hemorrhage or mass effect. CERVICAL SPINE: C1 ring: Defect at the posterior ring likely developmental. Cervico-occipital junction: Intact C1-C2 relationship: Mild rotation of C1 on C2, may be positional or due to muscle spasm. Fracture: No acute fracture identified. Spondylosis: Severe degenerative spondylosis. Facet joint hypertrophy and posterior osteophytes. Bilateral neural foraminal stenosis and [id number] spinal canal narrowing at multiple levels. Alignment: No significant vertebral body subluxation. Facets: Degenerative changes. No evidence of perched or locked facet. Prevertebral soft tissues: No significant swelling or hematoma Lung apices: Subtle nodularity at the right upper lobe medially. This could be chronic or could represent inflammatory process but is nonspecific. Thyroid: Bilateral hypodense nodules. Largest on the left measures 2.3 cm and is partially calcified. Impression: 1. Severe degenerative spondylosis. 2. No evidence of acute fracture or traumatic subluxation. 3. Subtle nodularity in the right upper lobe, particularly near the posteromedial pleura. Nonspecific, could be chronic or inflammatory but other etiologies not excludable. Consider further evaluation with nonemergent chest radiographs or CT chest, as indicated. 4. Left thyroid mass measures 2.3 cm and is partially calcified. Recommend clinical and sonographic workup, including outpatient thyroid ultrasound. Electronically signed by: Lucas Ortega MD (04/28/2018 1:59 PM) [id number]
== END 2018-04-28 14:20 | disposition short-term general hospital (02) ==
LOC: ER 11:21
DX: S72.011A Unspecified intracapsular fracture of right femur, initial encounter for closed fracture (principal); E11.9 Type 2 diabetes mellitus without complications; F41.9 Anxiety disorder, unspecified; F03.90 Unspecified dementia, unspecified severity, without behavioral disturbance, psychotic disturbance, mood disturbance, and anxiety; M47.892 Other spondylosis, cervical region; E07.89 Other specified disorders of thyroid; Z91.041 Radiographic dye allergy status; W07.XXXA Fall from chair, initial encounter; Y93.89 Activity, other specified; Y92.098 Other place in other non-institutional residence as the place of occurrence of the external cause; Y99.8 Other external cause status
CPT/HCPCS: 36415; 51702; 70450; 71045; 72125; 73502; 80053; 81001; 85025; 85610; 85730; 96374; 99285; J3010